=== PATIENT | male | born 1990 | race African-American/Black ===

== ENCOUNTER 2020-12-24 10:44 | Outpatient (CLI) | payer BC, SELFPAY ==
--- NOTE | ~2020-12-24 | US_ITS ---
EXAMINATION: US venous doppler [facility] EXAM DATE: 12/24/2020 11:37 INDICATION: M79.605 - Pain in left leg. TECHNIQUE: Multiple grayscale, color flow and Doppler images of the left lower extremity deep venous system were obtained and reviewed. There is no prior study for comparison. FINDINGS: The left common femoral, femoral and profunda veins demonstrate normal color flow, respirat ory variation, augmentation and compressibility. Compressibility, color flow confirmed within the le ft popliteal, posterior tibial, peroneal, and greater saphenous veins. There is left popliteal fossa cystic region likely Middleton's cyst measuring 1.9 x 4.7 x 1.7 cm. IMPRESSION: No left lower extremity deep venous thrombosis. Moderate-sized Middleton's cyst. Reviewed, dictated and finalized at location A. IMPRESSION: No left lower extremity deep venous thrombosis. Moderate-sized Bake r's cyst.
== END 2020-12-24 10:45 | disposition home or self-care (01) ==
PROVIDERS: PCP Family Medicine; Visit Provider Family Medicine
DX: M71.22 Synovial cyst of popliteal space [Baker], left knee (principal)
CPT/HCPCS: 93971

== ENCOUNTER 2021-02-10 10:52 | Outpatient (CLI) | payer BC, SELFPAY ==
--- NOTE | ~2021-02-10 | MR_ITS ---
EXAMINATION: MR knee LT wo con DATE: 02/10/2021 12:13 INDICATION: Left knee pain TECHNIQUE: Magnetic resonance imaging (MRI) of the left knee was performed without intravenous contra st. Sequences included coronal PD-weighted FSE, coronal PD-weighted FS FSE, sagittal T2-weighted FSE , sagittal PD-weighted FS FSE and axial PD weighted fat saturated FSE. COMPARISON: None. FINDINGS: Medial compartment: Medial meniscus is normal. Deep chondral fissuring along the lateral two thirds of the anterior to ce ntral weightbearing medial femoral condyle with small focus of underlying increased or subarticular m arrow signal. Cartilage along the medial tibial plateau is normal. Lateral compartment: Lateral meniscus is normal. Additional more prominent subarticular marrow signal change such with imtiaz p chondral fissuring at the medial side of the lateral tibial plateau along the shoulder the intercon dylar eminence. Less severe partial thickness fissuring at the central aspect of the lateral tibial p lateau and at the central weightbearing lateral femoral condyle. Patellofemoral compartment: Patellar cartilage is normal. Chondral swelling at the trochlear groove. Deep chondral fissuring at t he inferior aspect of the medial trochlea with cortical irregularity with appearance suggesting devel oping cystlike change. Additional shallow chondral ulceration and partial-thickness fissuring with un derlying subarticular edema at the lateral aspect of the medial trochlea and trochlear groove. Ligaments and tendons: Anterior and posterior cruciate ligaments are normal. The medial collateral ligament and fibular shirley ateral ligament complex are normal. The extensor mechanism is normal. The visualized medial and later al hamstring tendons as well as the iliotibial band are normal. Fluid: Physiologic amount of fluid in the joint space with mild synovitis at the suprapatellar pouch. No lo ose osteochondral bodies identified. Moderate sized multicomponent Middleton's cyst with typical proximal component and with thin neck extending to and additional component more distally along the superfici al margin of the medial head of the gastrocnemius. There is also cephalad extension of additional sma ll component along the deep margin of the semimembranosus. Osseous/other: Bone alignment is normal. No fracture or pathologic marrow replacing process. IMPRESSION: 1. Mild tricompartmental osteoarthritis with regions of high-grade chondromalacia in all 3 compartmen ts as detailed above. 2. Multicomponent Middleton's cyst at the popliteal fossa extending caudally along the superficial margin of the medial head of the gastrocnemius. Reviewed, dictated and finalized at location H. [facility] [employer] IMPRESSION: 1. Mild tricompartmental osteoarthritis with regions of high-grade chondromalac ia in all 3 compartments as detailed above. 2. Multicomponent Middleton's cyst at the popliteal fossa extending caudally along the superficial margin of the medial head of the gastrocnemius.
== END 2021-02-10 10:53 ==
PROVIDERS: PCP Family Medicine; Visit Provider Nurse Practitioner Family
DX: M17.12 Unilateral primary osteoarthritis, left knee (principal); M71.22 Synovial cyst of popliteal space [Baker], left knee
CPT/HCPCS: 73721